=== PATIENT | female | born 1980 | race American Indian/Alaskan Native ===

== ENCOUNTER 2017-06-02 11:51 | Emergency (ER) | payer SELFPAY ==
--- NOTE | 2017-06-02 13:30 | Emergency Department Report ---
Chief Complaint: Dizziness Stated Complaint: DIZZINESS Time Seen by Provider: 06/02/17 12:50 - HPI History of Present Illness: Patient is a 36-year-old female with a history of thyroid cancer with thyroidectomy 2009 who is on levothyroxine and a history of blood pressure on medication but currently out of her medication for the past 4 days. Patient presents to ED complaining of tingling sensation in her face arms and leg status and going for the past 2 days. Patient says she normally gets this feeling when her calcium is low. Patient also says for the past 4 days she has been out of her blood pressure medication and has not been taking. Patient states she is also out of her levothyroxine. She denies fevers as chills/nausea/vomiting/abdominal pain/chest pain or shortness of breath. - ROS Review of Systems: As noted in HPI - Exam Vital Signs: Vital Signs 06/02/17 11:58 Temperature 98.2 F Pulse Rate 78 Respiratory 20 Rate Blood Pressure 195/101 O2 Sat by Pulse 99 Oximetry Physical Exam: GENERAL: Alert and oriented x3, no apparent distress, Normal Gait, atraumatic. LUNGS: Symetrical with respiration, No wheezing, no rales or crackles, CTAB. HEART: S1, S2 present, regular rate and rhythm without murmur, no rubs, no gallops. Non tender to palpation NEURO: No neurological deficits, from crest bilaterally, no loss of sensation in upper and lower extremities, SKIN: Warm and dry, No lesions, No ulceration or induration present. MSE screening note: Focused history and physical exam performed. Due to findings the following was ordered: ED Medical Decision Making - Medical Decision Making 36-year-old stable female presents with tingling sensation CBC, CMP, troponin, a test ordered. Vital signs are normal she is stable, clonidine 0.1 ordered. If all labs are normal, patient can be seen by the fast track provider, She will need a refill on her blood pressure medication lisinopril/ Hydrochlorothiazide 20/25 mg as well as levothyroxine1.25mg. ED Disposition for MSE Condition: Stable
[2017-06-02] MEDS ORDERED: CATAPRES PO ONE (13:32)
[2017-06-02 13:53] LABS: Alanine Aminotransferase 53 units/L (7-56); Albumin/Globulin Ratio 1.1 %; Alkaline Phosphatase 73 units/L (35-129); Anion Gap 22 mmol/L; BUN/Creatinine Ratio 14; Blood Urea Nitrogen 7 mg/dL (7-17); Calcium 7.6 mg/dL (8.4-10.2); Carbon Dioxide 21 mmol/L (22-30); Chloride 103.2 mmol/L (98-107); Glucose 89 mg/dL (65-100); Hematocrit 45.9 % (30.3-42.9); Hemoglobin 15.3 gm/dl (10.1-14.3); Mean Corpuscular HGB Conc 33 % (30-34); Mean Corpuscular Hemoglobin 33 pg (28-32); Mean Corpuscular Volume 99 fl (79-97); Potassium 4.4 mmol/L (3.6-5.0); Red Blood Count 4.66 M/mm3 (3.65-5.03); Sodium 142 mmol/L (137-145); Total Protein 7.5 g/dL (6.3-8.2); White Blood Count 8.5 K/mm3 (4.5-11.0)
[2017-06-02 14:37] LABS: Platelet Count 105 K/mm3 (140-440)
[2017-06-02 16:00] VITALS: BP 150/100
[2017-06-02] MEDS ORDERED: TYLENOL PO ONE (16:39)
== END 2017-06-02 17:33 | disposition left against medical advice (07) ==
LOC: ED 11:51
DX: R42 Dizziness and giddiness (principal); Z53.21 Procedure and treatment not carried out due to patient leaving prior to being seen by health care provider
CPT/HCPCS: 36415; 80053; 84484; 84703; 85025; 93005; 93010